=== PATIENT | male | born 1945 | race Caucasian/White ===

== ENCOUNTER 2016-05-28 11:03 | Emergency (ER) | payer MEDICARE ==
[2016-05-28 14:31] VITALS: BP 157/79
--- NOTE | 2016-05-28 14:47 | UC ---
Respiratory Complaint HPI - HPI Summary HPI Summary: 71 yo male with cough/nasal congestion/post nasal drip x 1 week no f/c no CP or SOB no n/v/d - History of Current Complaint Chief Complaint: UCRespiratory Stated Complaint: UPPER RESPIRATORY Time Seen by Provider: 05/28/16 14:37 Hx Obtained From: Patient Onset/Duration: Gradual Onset, Lasting Weeks Timing: Constant Severity Initially: Mild Severity Currently: Mild Pain Intensity: 2 Pain Scale Used: 0-10 Numeric Character: Cough: Productive Aggravating Factors: Nothing Associated Signs And Symptoms: Positive: URI, Nasal Congestion, Hoarseness, Sinus Discomfort. Negative: Dyspnea, Fever, Chills, Pleuritic Chest Pain, Wheezing, Hemoptysis, Dizziness, Calf Pain, Calf Swelling - Allergies/Home Medications Allergies/Adverse Reactions: Allergies Allergy/AdvReac Type Severity Reaction Status Date / Time Azithromycin [From Zithromax] Allergy Unknown Verified 05/28/16 14:25 Reaction Details PMH/Surg Hx/FS Hx/Imm Hx Previously Healthy: No - kidney CA Endocrine History Of: Reports: Diabetes Cardiovascular History Of: Reports: Hypertension Denies: Congestive Heart Failure GI/ History Of: Reports: Kidney Stones - 10-11 YEARS AGO, LITHOTRIPSY X 4 Denies: Renal Disease - Surgical History Surgical History: Yes Surgery Procedure, Year, and Place: 2003 LITHOTRIPSY X 4 WITH STENT INSERTION AND REMOVAL, 1 IN [facility] / 3 AT [facility]. L kidney removal - Social History Alcohol Use: None Substance Use Type: None Smoking Status (MU): Former Smoker Type: Cigarettes Amount Used/How Often: 1 PPD When Did the Patient Quit Smoking/Using Tobacco: 1985 - Immunization History Most Recent Influenza Vaccination: 2016 Review of Systems Constitutional: Negative Skin: Negative Eyes: Negative ENT: Sore Throat, Ear Ache, Nasal Discharge Respiratory: Cough Cardiovascular: Negative Gastrointestinal: Negative Genitourinary: Negative Motor: Negative Neurovascular: Negative Musculoskeletal: Negative Neurological: Negative Psychological: Negative All Other Systems Reviewed And Are Negative: Yes Physical Exam Triage Information Reviewed: Yes Appearance: Well-Appearing, No Pain Distress, Well-Nourished Vital Signs: Initial Vital Signs Temp 97.5 F 05/28/16 14:27 Pulse 85 05/28/16 14:27 Resp 18 05/28/16 14:27 BP 157/79 05/28/16 14:27 Pulse Ox 98 05/28/16 14:27 Vital Signs Reviewed: Yes Eyes: Positive: Conjunctiva Clear ENT: Positive: Hearing grossly normal, Pharynx normal, Nasal congestion, Nasal drainage, TMs normal, Other: - bilateral sinus tenderness. Negative: Tonsillar exudate, Trismus Dental: Positive: Cervical Lymphadenopathy Neck: Positive: Supple, Nontender, No Lymphadenopathy Respiratory: Positive: Lungs clear, Normal breath sounds, No respiratory distress, No accessory muscle use, Respiratory distress Cardiovascular: Positive: RRR, No Murmur. Negative: Tachycardia, Bradycardia Musculoskeletal: Positive: ROM Intact, No Edema Neurological: Positive: Alert Psychological Exam: Normal Skin Exam: Normal UC Diagnostic Evaluation - Laboratory O2 Sat by Pulse Oximetry: 98 Respiratory Course/Dx - Differential Dx/Diagnosis Provider Diagnoses: acute sinusitis Discharge - Discharge Plan Condition: Stable Disposition: HOME Prescriptions: Amoxicillin (*) 875 mg PO BID #20 tab Benzonatate CAP* [Tessalon CAP*] 100 - 200 mg PO TID PRN #28 cap PRN Reason: Cough Fluticasone NASAL SPRAY 50MCG* [Flonase NASAL SPRAY 50MCG*] 2 spray BOTH NARES DAILY #1 btl Patient Education Materials: Sinusitis (ED) Referrals: Warren Joel MD [Primary Care Provider] - 1 Week (if not better)
== END 2016-05-28 14:48 | disposition home or self-care (01) ==
LOC: UCCORT 11:03
DX: J01.90 Acute sinusitis, unspecified (principal); I10 Essential (primary) hypertension; E11.9 Type 2 diabetes mellitus without complications; Z85.528 Personal history of other malignant neoplasm of kidney; Z90.5 Acquired absence of kidney; Z87.891 Personal history of nicotine dependence; Z88.3 Allergy status to other anti-infective agents
CPT/HCPCS: 99212; G0463